=== PATIENT | female | born 1990 | race Caucasian/White ===

== ENCOUNTER 2019-08-03 16:48 | Emergency (ER) | payer SELFPAY ==
[2019-08-03 17:12] VITALS: BP 133/96; PULSE 100; RESP 18; TEMP 36.7; O2SAT 100; BMI 20.3
== END 2019-08-03 18:25 | disposition home or self-care (01) ==
PROVIDERS: Emergency Provider Emergency Medicine
DX: Z53.21 Procedure and treatment not carried out due to patient leaving prior to being seen by health care provider (principal)
CPT/HCPCS: 99281

== ENCOUNTER → 2020-01-08 13:28 | Outpatient (BNVA) | payer OTHER, MEDICAID, SELFPAY | PROVIDERS: Visit Provider Nurse Practitioner Women's Health | DX: O09.899 Supervision of other high risk pregnancies, unspecified trimester (principal); B18.2 Chronic viral hepatitis C; O34.219 Maternal care for unspecified type scar from previous cesarean delivery; Z87.898 Personal history of other specified conditions; O99.331 Smoking (tobacco) complicating pregnancy, first trimester; R00.0 Tachycardia, unspecified; Z3A.12 12 weeks gestation of pregnancy | CPT/HCPCS: 80307; 84315 ==

== ENCOUNTER 2020-03-19 14:05 | Outpatient (CLI) | payer OTHER, MEDICAID, SELFPAY ==
[2020-03-19] VITALS (7 sets, daily range): BP systolic 0–148; BP diastolic 0–85; PULSE 92–110; RESP 18; TEMP 37.1; BMI 21.9
== END 2020-03-19 15:41 | disposition home or self-care (01) ==
LOC: OPOB 14:12 → OBGYN 14:13
PROVIDERS: Visit Provider Obstetrics & Gynecology
DX: O26.899 Other specified pregnancy related conditions, unspecified trimester (principal); Z3A.00 Weeks of gestation of pregnancy not specified; R10.9 Unspecified abdominal pain
CPT/HCPCS: 59025; 99211

== ENCOUNTER → 2020-10-07 11:23 | Outpatient (BNVA) | payer MEDICAID, SELFPAY | PROVIDERS: Visit Provider Nurse Practitioner Family | DX: N30.01 Acute cystitis with hematuria (principal) | CPT/HCPCS: 81003; 87077; 87086; 87184 ==

== ENCOUNTER → 2022-07-07 11:57 | Outpatient (BNVA) | payer MEDICAID, SELFPAY | PROVIDERS: Visit Provider Nurse Practitioner Family | DX: N39.0 Urinary tract infection, site not specified (principal); F11.20 Opioid dependence, uncomplicated; N91.1 Secondary amenorrhea | CPT/HCPCS: 80053; 80307; 84703 ==

== ENCOUNTER 2022-08-02 14:10 | Outpatient (CLI) | payer MEDICAID, SELFPAY ==
--- NOTE | 2022-08-02 14:26 | US_ITS ---
WS: [id number] Bilateral breast ultrasound, 08/02/2022 Clinical Data: BREAST DISCHARGE Comparison: None. Findings: Periareolar breast ultrasound was done in both breasts. There are no cysts or masses. No dilated mamm ford ducts were seen. Only normal breast tissue was imaged. US/US breast BI limited* [id number] Impression: 1. Negative bilateral periareolar breast ultrasound. 2. Recommend clinical follow-up. BIRADS: 1-Negative FOLLOW UP: See Report
== END 2022-08-02 14:11 | disposition home or self-care (01) ==
PROVIDERS: Visit Provider Nurse Practitioner Family
DX: N64.52 Nipple discharge (principal)
CPT/HCPCS: 76642

== ENCOUNTER → 2022-08-10 16:50 | Outpatient (BNVA) | payer MEDICAID, SELFPAY | PROVIDERS: Visit Provider Nurse Practitioner Family | DX: N39.0 Urinary tract infection, site not specified (principal) | CPT/HCPCS: 81003; 87077; 87086; 87184 ==

== ENCOUNTER 2022-09-12 14:10 | Outpatient (CLI) | payer MEDICAID, SELFPAY ==
--- NOTE | 2022-09-12 14:30 | US_ITS ---
WS: [id number] Transabdominal and transvaginal PELVIC ULTRASOUND HISTORY: Back pain. History of . COMPARISON: 12/16/2015 Uterus: 7.7 cm x 4.2 cm x 3.4 cm. Normal size and echogenicity. No fibroids are identified. Endometrium: 1.0 cm. Normal homogeneity and size. Right ovary: 3.2 cm x 2.4 cm x 2.4 cm; no solid or cystic mass. Normal vascularity. Seen on transabdominal imaging only was a hypoechoic area in the RIGHT adnexa which is separate from the ovary. This did not persist on transvaginal imaging. Most likely bowel. Left ovary: 2.2 cm x 2.2 cm x 1.7 cm; no solid or cystic mass. Normal vascularity. No free fluid in the cul-de-sac. US/US pelvic complete* [id number] IMPRESSION: Normal pelvic ultrasound. Normal endometrium.
== END 2022-09-12 14:11 | disposition home or self-care (01) ==
PROVIDERS: PCP Family Medicine; Visit Provider Nurse Practitioner Family
DX: N91.1 Secondary amenorrhea (principal)
CPT/HCPCS: 76856

== ENCOUNTER 2022-11-24 15:57 | Emergency (ER) | payer MEDICAID, SELFPAY ==
[2022-11-24 16:02] VITALS: BP 145/96; PULSE 108; RESP 16; TEMP 36.2; O2SAT 97; BMI 20.3
--- NOTE | 2022-11-24 16:06 | ECG_ITS ---
[facility] Test Date: 2022-11-24 Pat Name: Zabrina Angela Department: Room: Gender: Female Log Scaler: : 1990 Requested By: Misha Herbert Order Number: [id number] Shoemaker MD: Alise Michaels M.D. Measurements Intervals [place] Rate: 104 P: 77 OK: 130 QRS: 66 QRSD: 90 T: 44 QT: 329 QTc: 434 Interpretive Statements SINUS TACHYCARDIA LEFT ATRIAL ENLARGEMENT [-0.15mV P-WAVE IN V1/V2] NONSPECIFIC T-WAVE ABNORMALITY No previous ECG available for comparison Electronically Signed On 11-25-2022 16:34:19 CDT by Alise Michaels M.D. [email or web address]/[id number]
--- NOTE | 2022-11-24 16:06 | XRR_ITS ---
PROCEDURE INFORMATION: Exam: XR Chest Exam date and time: 11/24/2022 4:16 PM Age: 32 years old Clinical indication: Left-sided; Patient HX: Left sided chest pain with history of lung nodules. History of right shoulder surgery. ; Additional info: Cp; Left sided chest pain with history of lung nodules. History of right shoulder surgery. TECHNIQUE: Imaging protocol: Radiologic exam of the chest. Views: 1 view. COMPARISON: CT kidney stone [id number] 09/25/2016 12:39 AM FINDINGS: Lungs: Unremarkable. No consolidation. Pleural spaces: Unremarkable. No pleural effusion. No pneumothorax. Heart/Mediastinum: Unremarkable. No cardiomegaly. Bones/joints: Metallic plate and screws are present in the distal shaft of the right clavicle XR/XR chest 1V portable [id number] IMPRESSION: 1. No acute findings. 2. Orthopedic hardware right clavicle
--- NOTE | 2022-11-24 16:14 | W.ED.CHESTPA ---
Documented by User: LEXI Hernandez 11/25/22 07:07 HPI - Chest Pain General: Chief Complaint: Chest Pain Stated Complaint: chest pain and tightness Time Seen by Provider: 11/24/22 16:04 History of Present Illness: Patient is a 32-year-old female comes to the ED with chest pain. Chest pain started last night while at rest. pain is located left-side of chest and then radiates to her back. She rates the pain an 8 out of 10 and describes it as a tightness type pain in chest. Pain worsens when she takes a deep breath. Last night she took some acid reflux medications and her symptoms did not improve. Denies any cardiac or lung history. She has never had chest pain like this before. Patient says she is currently on azithromycin to treat a sinus infection. Associated symptoms: Reports dyspnea; Deny abdominal pain, fever(s), nausea, palpitations or vomiting Review of Systems Const: Denies: fever(s), chills or fatigue Eyes: Denies: change in vision or eye discomfort ENMT: Denies: throat pain, odynophagia, nasal discharge or nasal congestion Card: Reports: chest pain; Denies: palpitations, edema, swelling of feet/ankles, dyspnea on exertion or orthopnea Resp: Reports: dyspnea; Denies: productive cough or non-productive cough GI: Denies: abdominal pain, nausea, vomiting, diarrhea, constipation or hematochezia : Denies: flank pain, dysuria or hematuria Musc: Denies: neck pain, back pain or extremity swelling Skin/Breast: Denies: rash or new lesions Neuro: Denies: headache(s), numbness in extremities or weakness in extremities PFS ED PFSH: Medical History Anxiety with depression GERD without esophagitis H/O multiple pulmonary nodules (~2019) Hep C w/o coma, chronic (~2014) Tachycardia Surgical History H/O section (05/24/15) H/O clavicle fracture Broken right clavicle - required surgery. Family History Mother Hypertension Stroke Family history of thyroid problem Father Hypertension Hyperlipidemia Grandmother Lung cancer Maternal grandmother Diabetes Paternal grandmother Family history of thyroid problem Maternal grandmother Cancer renal Grandfather Diabetes Paternal grandfather Family/Other Stroke Paternal uncle Denies family history of Colon cancer Ovarian cancer Breast cancer Uterine cancer Social History Smoking and tobacco status: current every day smoker cigarettes Packs smoked per day: 0.5 Years cigarettes smoked: 10 Second hand smoke exposure: Yes Alcohol intake: never Substance/Drug Use: never Lives independently: Yes Household members: significant other and children Marital status: Single Current occupational status: unemployed Pets and animals: Yes Pets & animals: dog(s) Current gender identity: Female Special milton needs: No Agree to transfusion: Yes Additional social history: - Tobacco use: Alcohol use: Drug use: Physical Exam Const: COMMON NORMALS: no acute distress, patient oriented x3 and alert HENMT: COMMON NORMALS: normocephalic HEAD & SCALP: normocephalic MOUTH: Normal oral and palatal mucosa present THROAT: posterior oropharynx normal and uvula midline Neck/C-Spine: COMMON NORMALS: supple GENERAL: Yes normal visual inspection Resp: COMMON NORMALS: normal respiratory effort, No retractions, No use of accessory muscles and clear to auscultation bilaterally AUSCULTATION: clear to auscultation bilaterally Cardio: COMMON NORMALS: regular rate, regular rhythm, S1 normal heart sound present, S2 normal heart sound present, No gallops present (Cardio), No clicks present (Cardio), No murmurs present (Cardio) and Peripheral pulses 2+ throughout RATE: regular rate RHYTHM: regular rhythm HEART SOUNDS: S1 normal heart sound present and S2 normal heart sound present PERIPHERAL PULSES: Peripheral pulses 2+ throughout GI: COMMON NORMALS: Normal to inspection, nondistended, normoactive bowel sounds present, Soft to palpation, non-tender and no masses PALPATION: Yes Soft to palpation : COMMON NORMALS: Yes no CVA tenderness BLADDER/KIDNEY EXAM: Yes no CVA tenderness Back/Pelvis: COMMON NORMALS: no CVA tenderness Extremity: COMMON NORMALS: normal to inspection Neuro: COMMON NORMALS: patient oriented x3 SENSORIUM/ORIENTATION: Yes alert GAIT: Yes Normal gait present Skin: GENERAL SKIN EXAM: dry skin Course Vital Signs: Vital signs: Vital Signs Temperature 97.1 F L 11/24/22 16:02 Pulse Rate 90 11/24/22 18:56 Respiratory Rate 14 11/24/22 16:57 Blood Pressure 145/96 11/24/22 16:02 Pulse Oximetry 100 11/24/22 18:56 Oxygen Delivery Me thod Room Air 11/24/22 16:02 MDM - Chest Pain Lab Data I reviewed the patient's lab results. 11/24/22 16:52 11/24/22 16:52 Laboratory Results WBC 11.7 10^3/uL (4.0-10.0) H 11/24/22 16:52 RBC 4.62 10^6/uL (4.1-5.3) 11/24/22 16:52 Hgb 13.9 g/dL (11.5-15.3) 11/24/22 16:52 Hct 41.4 % (37.0-47.0) 11/24/22 16:52 MCV 89.6 fl (81-99) 11/24/22 16:52 MCH 30.1 pg (28.0-34.0) 11/24/22 16:52 MCHC 33.6 g/dL (30.0-36.0) 11/24/22 16:52 RDW 12.0 % (12.1-15.1) L 11/24/22 16:52 Plt Count 292 10^3/cmm (130-400) 11/24/22 16:52 MPV 9.9 fL (7.4-10.4) 11/24/22 16:52 Neut % (Auto) 70.8 % 11/24/22 16:52 Lymph % (Auto) 21.5 % 11/24/22 16:52 Harvey % (Auto) 4.3 % 11/24/22 16:52 Eos % (Auto) 2.6 % 11/24/22 16:52 Baso % (Auto) 0.5 % 11/24/22 16:52 Neut # (Auto) 8.26 10^3/uL (1.8-7.7) H 11/24/22 16:52 Lymph # (Auto) 2.5 10^3/uL (0.8-4.8) 11/24/22 16:52 Harvey # (Auto) 0.5 10^3/uL (0.2-0.9) 11/24/22 16:52 Eos # (Auto) 0.3 10^3/uL (0.0-0.8) 11/24/22 16:52 Baso # (Auto) 0.1 10^3/uL (0.0-0.1) 11/24/22 16:52 Nucleated RBC % (auto) 0 % 11/24/22 16:52 Nucleated RBCs # 0.0 /100WBC 11/24/22 16:52 D-Dimer 0.31 ug/mIFEU (0-0.59) 11/24/22 16:52 Sodium 139 mmol/L (136-145) 11/24/22 16:52 Potassium 3.8 mmol/L (3.5-5.1) 11/24/22 16:52 Chloride 102 mmol/L (98-107) 11/24/22 16:52 Carbon Dioxide 26 mmol/L (22-29) 11/24/22 16:52 Anion Gap 14.8 (5-19) 11/24/22 16:52 BUN 17 mg/dL (6-20) 11/24/22 16:52 Creatinine 0.7 mg/dL (0.5-0.9) 11/24/22 16:52 GFR Calculation 98.3 mL/min (90-130) 11/24/22 16:52 Glucose 104 mg/dL (65-115) 11/24/22 16:52 Calculated Osmolality 290 mOsm/kg (285-295) 11/24/22 16:52 Calcium 9.2 mg/dL (8.5-10.5) 11/24/22 16:52 Total Bilirubin 0.2 mg/dL (0.15-1.2) 11/24/22 16:52 AST 16 U/L (0-32) 11/24/22 16:52 ALT 10 U/L (0-33) 11/24/22 16:52 Alkaline Phosphatase 98 U/L (35-105) 11/24/22 16:52 Troponin T Baseline 6 ng/L (0-10) 11/24/22 16:52 Troponin T 120 Minute 6.00 ng/L (0-10) 11/24/22 18:39 Delta Troponin T 0 ABS# (0-10) 11/24/22 18:39 Total Protein 7.5 g/dL (6.6-8.7) 11/24/22 16:52 Albumin 4.3 g/dL (3.5-5.2) 11/24/22 16:52 Globulin 3.2 g/dL (1.3-4.6) 11/24/22 16:52 TSH 3.00 uIU/mL (0.27-4.20) 11/24/22 16:52 HCG, Qual Negative (Negative) 11/24/22 16:52 Urine Color Light yellow (Yellow) 11/24/22 17:43 Urine Appearance Hazy (CLEAR) A 11/24/22 17:43 Urine pH 6 (5-7) 11/24/22 17:43 Ur Specific [place] 1.020 (1.005-1.030) 11/24/22 17:43 Urine Protein Neg (Negative) 11/24/22 17:43 Urine Glucose (UA) Norm (Normal) 11/24/22 17:43 Urine Ketones Negative (Negative) 11/24/22 17:43 Urine Blood 2+ (Negative) H 11/24/22 17:43 Urine Nitrate Negative (Negative) 11/24/22 17:43 Urine Bilirubin Neg (Negative) 11/24/22 17:43 Urine Urobilinogen 1 mg/dL (Negative) H 11/24/22 17:43 Ur Leukocyte Esterase 1+ (Negative) H 11/24/22 17:43 Urine RBC 10-15 /hpf (0-2) H 11/24/22 17:43 Urine WBC 15-25 /hpf (0-5) H 11/24/22 17:43 Ur Squamous Epith Cells 55-80 /hpf (0-5) H 11/24/22 17:43 Amorphous Sediment Not Reportable 11/24/22 17:43 Urine Bacteria Trace /hpf (NONE) 11/24/22 17:43 Urine Mucus 4+ /hpf 11/24/22 17:43 Urine Opiates Screen Positive ng/mL (Negative) H 11/24/22 17:43 Ur Barbiturates Screen Negative ng/mL (Negative) 11/24/22 17:43 Ur Phencyclidine Scrn Negative ng/mL (Negative) 11/24/22 17:43 Ur Amphetamines Screen Positive ng/mL (Negative) H 11/24/22 17:43 U Benzodiazepines Scrn Positive ng/mL (Negative) H 11/24/22 17:43 Urine Cocaine Screen Negative ng/mL (Negative) 11/24/22 17:43 U Marijuana (THC) Screen Negative ng/mL (Negative) 11/24/22 17:43 EKG Data EKG 1: EKG interpretation date: 11/24/22 Interpretation: Sinus tachycardia, 104 bpm, no ST segment elevation or depression seen. Discharge Plan Discharge Patient Disposition: Home Clinical Impression: Left-sided chest pain, Chest pain, non-cardiac Condition: Stable Prescriptions: New pantoprazole 40 mg tablet,delayed release (DR/EC) 40 mg PO DAILY 28 Days Qty: 30 0RF cyclobenzaprine 10 mg tablet 10 mg PO TID Qty: 14 0RF No Action azithromycin 250 mg tablet See Rx Instructions PO .COMPLEX Qty: 6 0RF Rx Instructions: For 250 mg dose pack: take 500 mg today (day 1), then 250 mg for 4 days (days 2-5) PO aspirin 325 mg Tablet 325 mg PO .ONE TIME DOSE Discharge Orders: Discharge ED (Routine); Ordered 11/24/22 Ordered By: Naz Meyers Referrals: Ana Luisa Gee MD [Primary Care Provider] - Discharge Diet: Usual diet Discharge Activity: Increase activity as tolerated Patient Instructions: Chest Pain - Noncardiac, Chest Pain - Chest Wall, Angina (ED), GERD (Gastroesophageal Reflux Disease) (ED), Esophageal Spasm (ED) Activity Restrictions/Additional Instructions: Cardiac evaluation today revealed no acute concerns regarding your heart. You showed no signs of any acute bacterial infection, anemia, electrolyte imbalance, or acute dehydration. You were evaluated for potential blood clot in your chest which was also normal and, showed no signs of any abnormal thyroid function. As we discussed, there are some causes of chest pain that are not able to be evaluated with lab work or imaging-such as an esophageal spasm. We will try treatment for reflux and I am going to give you some muscle relaxer should your pain be caused by an esophageal spasm to see if it alleviates your discomfort. I do recommend following up with your primary care doctor at the beginning of next week for recheck or, being seen and reevaluated again here in the emergency department if you develop recurrence of chest pain, shortness of breath, passing out, vomiting, or difficulty breathing. Sign Out Sign Out Data: Patient Sign Out occurred on 11/24/22 at 17:05. Patient's care was discussed, and care was transferred from to LEXI Phillips. Coding Level of Care Code ED Household Appliance Mechanic for Chg Fwd Documented by User: LEXI Phillips 11/24/22 18:52 HPI - Chest Pain General: Chief Complaint: Chest Pain Stated Complaint: chest pain and tightness Time Seen by Provider: 11/24/22 16:04 PFSH ED PFSH: Medical History Anxiety with depression GERD without esophagitis H/O multiple pulmonary nodules (~2019) Hep C w/o coma, chronic (~2014) Tachycardia Surgical History H/O section (05/24/15) H/O clavicle fracture Broken right clavicle - required surgery. Family History Mother Hypertension Stroke Family history of thyroid problem Father Hypertension Hyperlipidemia Grandmother Lung cancer Maternal grandmother Diabetes Paternal grandmother Family history of thyroid problem Maternal grandmother Cancer renal Grandfather Diabetes Paternal grandfather Family/Other Stroke Paternal uncle Denies family history of Colon cancer Ovarian cancer Breast cancer Uterine cancer Social History Smoking and tobacco status: current every day smoker cigarettes Packs smoked per day: 0.5 Years cigarettes smoked: 10 Second hand smoke exposure: Yes Alcohol intake: never Substance/Drug Use: never Lives independently: Yes Household members: significant other and children Marital status: Single Current occupational status: unemployed Pets and animals: Yes Pets & animals: dog(s) Current gender identity: Female Special milton needs: No Agree to transfusion: Yes Additional social history: - Tobacco use: Alcohol use: Drug use: Course Vital Signs: Vital signs: Vital Signs Temperature 97.1 F L 11/24/22 16:02 Pulse Rate 90 11/24/22 18:56 Respiratory Rate 14 11/24/22 16:57 Blood Pressure 145/96 11/24/22 16:02 Pulse Oximetry 100 11/24/22 18:56 Oxygen Delivery Me thod Room Air 11/24/22 16:02 MDM - Chest Pain Medical Decision Making Naz Meyers PA-C: I received transfer of care for this patient at 1700 from [facility]. After hearing the patient's presenting complaints, we did add a TSH to her evaluation. Also, I did some investigating into the patient's chart and, as of 2019, had a history of untreated hepatitis and a history of drug use. Later chart indicates she was going to a Suboxone clinic. Patient's chart indicates a previously documented history of tachycardia without associated diagnostic cause. I added a urinalysis with a urine drug screen. Patient had no elevated white blood cell count no signs of anemia. She had no electrolyte abnormality and thyroid was normal. Chest x-ray indicated no signs of any active hernia, EKG showed a sinus tachycardia but no elevated troponins. Patient's D-dimer was negative. Patient's urinalysis revealed positive findings of amphetamines, benzodiazepines, and opioids. I did discuss all these negative and positive findings with the patient. Explained to her that there are other reasons of chest pain which we do not have a blood test for-i.e. reflux or esophageal spasm. Explained that both of these can cause pain and discomfort in the region she described. We will try her on a PPI and, muscle relaxer to see if her pain is improved however, she was given strict return precautions for any return or worsening of chest pains including respiratory distress or passing out. Recommended follow-up appoint with her primary care next week for recheck. Differential Diagnosis Likely acute massive pulmonary embolism (Abnormal thyroid, hiatal hernia, anemia, illegal substance), acute respiratory failure and acute myocardial infarction Lab Data 11/24/22 16:52 11/24/22 16:52 Laboratory Results WBC 11.7 10^3/uL (4.0-10.0) H 11/24/22 16:52 RBC 4.62 10^6/uL (4.1-5.3) 11/24/22 16:52 Hgb 13.9 g/dL (11.5-15.3) 11/24/22 16:52 Hct 41.4 % (37.0-47.0) 11/24/22 16:52 MCV 89.6 fl (81-99) 11/24/22 16:52 MCH 30.1 pg (28.0-34.0) 11/24/22 16:52 MCHC 33.6 g/dL (30.0-36.0) 11/24/22 16:52 RDW 12.0 % (12.1-15.1) L 11/24/22 16:52 Plt Count 292 10^3/cmm (130-400) 11/24/22 16:52 MPV 9.9 fL (7.4-10.4) 11/24/22 16:52 Neut % (Auto) 70.8 % 11/24/22 16:52 Lymph % (Auto) 21.5 % 11/24/22 16:52 Harvey % (Auto) 4.3 % 11/24/22 16:52 Eos % (Auto) 2.6 % 11/24/22 16:52 Baso % (Auto) 0.5 % 11/24/22 16:52 Neut # (Auto) 8.26 10^3/uL (1.8-7.7) H 11/24/22 16:52 Lymph # (Auto) 2.5 10^3/uL (0.8-4.8) 11/24/22 16:52 Harvey # (Auto) 0.5 10^3/uL (0.2-0.9) 11/24/22 16:52 Eos # (Auto) 0.3 10^3/uL (0.0-0.8) 11/24/22 16:52 Baso # (Auto) 0.1 10^3/uL (0.0-0.1) 11/24/22 16:52 Nucleated RBC % (auto) 0 % 11/24/22 16:52 Nucleated RBCs # 0.0 /100WBC 11/24/22 16:52 D-Dimer 0.31 ug/mIFEU (0-0.59) 11/24/22 16:52 Sodium 139 mmol/L (136-145) 11/24/22 16:52 Potassium 3.8 mmol/L (3.5-5.1) 11/24/22 16:52 Chloride 102 mmol/L (98-107) 11/24/22 16:52 Carbon Dioxide 26 mmol/L (22-29) 11/24/22 16:52 Anion Gap 14.8 (5-19) 11/24/22 16:52 BUN 17 mg/dL (6-20) 11/24/22 16:52 Creatinine 0.7 mg/dL (0.5-0.9) 11/24/22 16:52 GFR Calculation 98.3 mL/min (90-130) 11/24/22 16:52 Glucose 104 mg/dL (65-115) 11/24/22 16:52 Calculated Osmolality 290 mOsm/kg (285-295) 11/24/22 16:52 Calcium 9.2 mg/dL (8.5-10.5) 11/24/22 16:52 Total Bilirubin 0.2 mg/dL (0.15-1.2) 11/24/22 16:52 AST 16 U/L (0-32) 11/24/22 16:52 ALT 10 U/L (0-33) 11/24/22 16:52 Alkaline Phosphatase 98 U/L (35-105) 11/24/22 16:52 Troponin T Baseline 6 ng/L (0-10) 11/24/22 16:52 Troponin T 120 Minute 6.00 ng/L (0-10) 11/24/22 18:39 Delta Troponin T 0 ABS# (0-10) 11/24/22 18:39 Total Protein 7.5 g/dL (6.6-8.7) 11/24/22 16:52 Albumin 4.3 g/dL (3.5-5.2) 11/24/22 16:52 Globulin 3.2 g/dL (1.3-4.6) 11/24/22 16:52 TSH 3.00 uIU/mL (0.27-4.20) 11/24/22 16:52 HCG, Qual Negative (Negative) 11/24/22 16:52 Urine Color Light yellow (Yellow) 11/24/22 17:43 Urine Appearance Hazy (CLEAR) A 11/24/22 17:43 Urine pH 6 (5-7) 11/24/22 17:43 Ur Specific [place] 1.020 (1.005-1.030) 11/24/22 17:43 Urine Protein Neg (Negative) 11/24/22 17:43 Urine Glucose (UA) Norm (Normal) 11/24/22 17:43 Urine Ketones Negative (Negative) 11/24/22 17:43 Urine Blood 2+ (Negative) H 11/24/22 17:43 Urine Nitrate Negative (Negative) 11/24/22 17:43 Urine Bilirubin Neg (Negative) 11/24/22 17:43 Urine Urobilinogen 1 mg/dL (Negative) H 11/24/22 17:43 Ur Leukocyte Esterase 1+ (Negative) H 11/24/22 17:43 Urine RBC 10-15 /hpf (0-2) H 11/24/22 17:43 Urine WBC 15-25 /hpf (0-5) H 11/24/22 17:43 Ur Squamous Epith Cells 55-80 /hpf (0-5) H 11/24/22 17:43 Amorphous Sediment Not Reportable 11/24/22 17:43 Urine Bacteria Trace /hpf (NONE) 11/24/22 17:43 Urine Mucus 4+ /hpf 11/24/22 17:43 Urine Opiates Screen Positive ng/mL (Negative) H 11/24/22 17:43 Ur Barbiturates Screen Negative ng/mL (Negative) 11/24/22 17:43 Ur Phencyclidine Scrn Negative ng/mL (Negative) 11/24/22 17:43 Ur Amphetamines Screen Positive ng/mL (Negative) H 11/24/22 17:43 U Benzodiazepines Scrn Positive ng/mL (Negative) H 11/24/22 17:43 Urine Cocaine Screen Negative ng/mL (Negative) 11/24/22 17:43 U Marijuana (THC) Screen Negative ng/mL (Negative) 11/24/22 17:43 Discharge Plan Discharge Patient Disposition: Home Clinical Impression: Left-sided chest pain, Chest pain, non-cardiac Condition: Stable Prescriptions: New pantoprazole 40 mg tablet,delayed release (DR/EC) 40 mg PO DAILY 28 Days Qty: 30 0RF cyclobenzaprine 10 mg tablet 10 mg PO TID Qty: 14 0RF No Action azithromycin 250 mg tablet See Rx Instructions PO .COMPLEX Qty: 6 0RF Rx Instructions: For 250 mg dose pack: take 500 mg today (day 1), then 250 mg for 4 days (days 2-5) PO aspirin 325 mg Tablet 325 mg PO .ONE TIME DOSE Discharge Orders: Discharge ED (Routine); Ordered 11/24/22 Ordered By: Naz Meyers Referrals: Ana Luisa Gee MD [Primary Care Provider] - Discharge Diet: Usual diet Discharge Activity: Increase activity as tolerated Patient Instructions: Chest Pain - Noncardiac, Chest Pain - Chest Wall, Angina (ED), GERD (Gastroesophageal Reflux Disease) (ED), Esophageal Spasm (ED) Activity Restrictions/Additional Instructions: Cardiac evaluation today revealed no acute concerns regarding your heart. You showed no signs of any acute bacterial infection, anemia, electrolyte imbalance, or acute dehydration. You were evaluated for potential blood clot in your chest which was also normal and, showed no signs of any abnormal thyroid function. As we discussed, there are some causes of chest pain that are not able to be evaluated with lab work or imaging-such as an esophageal spasm. We will try treatment for reflux and I am going to give you some muscle relaxer should your pain be caused by an esophageal spasm to see if it alleviates your discomfort. I do recommend following up with your primary care doctor at the beginning of next week for recheck or, being seen and reevaluated again here in the emergency department if you develop recurrence of chest pain, shortness of breath, passing out, vomiting, or difficulty breathing. Sign Out Sign Out Data: Patient Sign Out occurred on 11/24/22 at 17:05. Patient's care was discussed, and care was transferred from to LEXI Phillips. Coding Level of Care Code ED Household Appliance Mechanic for Sabrina Beltran
[2022-11-24] MEDS: aspirin 81 mg Chew Tablet 324 MG PO (16:54)
[2022-11-24] MEDS: ondansetron 2 mg/ML SDV 2 mL 4 MG IVP (16:55)
[2022-11-24 16:57] VITALS: RESP 14; O2SAT 100
[2022-11-24] MEDS: morphine 4 mg/mL SDV 1 mL IVP (16:57)
[2022-11-24 17:11] LABS: Basophils # 0.1 10^3/uL (0.0-0.1); Basophils % 0.5 %; Eosinophils # 0.3 10^3/uL (0.0-0.8); Eosinophils % 2.6 %; Hematocrit 41.4 % (37.0-47.0); Hemoglobin 13.9 g/dL (11.5-15.3); Lymphocytes # 2.5 10^3/uL (0.8-4.8); Lymphocytes % 21.5 %; Mean Corpuscular HGB Conc 33.6 g/dL (30.0-36.0); Mean Corpuscular Hemoglobin 30.1 pg (28.0-34.0); Mean Corpuscular Volume 89.6 fl (81-99); Mean Platelet Volume 9.9 fL (7.4-10.4); Monocytes # 0.5 10^3/uL (0.2-0.9); Monocytes % 4.3 %; Neutrophils # 8.26 10^3/uL (1.8-7.7); Neutrophils % 70.8 %; Nucleated Red Blood Cells % 0 %; Platelet Count 292 10^3/cmm (130-400); Red Blood Count 4.62 10^6/uL (4.1-5.3); White Blood Count 11.7 10^3/uL (4.0-10.0)
[2022-11-24 17:20] LABS: HCG, Serum Qual Negative (Negative)
[2022-11-24 17:33] LABS: Troponin(5th) Baseline 6 ng/L (0-10)
[2022-11-24 17:42] LABS: Alanine Aminotransferase 10 U/L (0-33); Albumin Level 4.3 g/dL (3.5-5.2); Alkaline Phosphatase 98 U/L (35-105); Anion Gap 14.8 (5-19); Aspartate Amino Transferase 16 U/L (0-32); Blood Urea Nitrogen 17 mg/dL (6-20); Calcium 9.2 mg/dL (8.5-10.5); Carbon Dioxide 26 mmol/L (22-29); Chloride 102 mmol/L (98-107); Creatinine Clr Calc Pharmacy 112.3239; Globulin 3.2 g/dL (1.3-4.6); Glomerular Filtration Rate 98.3 mL/min (90-130); Glucose 104 mg/dL (65-115); Osmolality Calculated 290 mOsm/kg (285-295); Potassium 3.8 mmol/L (3.5-5.1); Sodium 139 mmol/L (136-145); Total Bilirubin 0.2 mg/dL (0.15-1.2); Total Protein 7.5 g/dL (6.6-8.7)
[2022-11-24 17:44] LABS: D Dimer 0.31 ug/mIFEU (0-0.59)
[2022-11-24 18:05] VITALS: PULSE 94; O2SAT 100
--- NOTE | 2022-11-24 18:14 | ECG_ITS ---
[facility] Test Date: 2022-11-24 Pat Name: Zabrina Angela Department: Room: Gender: Female Barrel Reamer: : 1990 Requested By: Misha Herbert Order Number: [id number] Shoemaker MD: Alise Michaels M.D. Measurements Intervals [place] Rate: 88 P: 79 SD: 135 QRS: 68 QRSD: 88 T: 60 QT: 366 QTc: 444 Interpretive Statements SINUS RHYTHM POSSIBLE LEFT ATRIAL ENLARGEMENT [-0.1mV P-WAVE IN V1/V2] Compared to ECG 11/24/2022 16:20:07 Sinus tachycardia no longer present T-wave abnormality no longer present Electronically Signed On 11-25-2022 16:55:45 CDT by Alise Michaels M.D. [id number]
[2022-11-24 18:23] LABS: Amphetamines Screen Urine Positive (Negative); Barbiturates Screen Urine Negative (Negative); Benzodiazepines Screen Urine Positive (Negative); Cocaine Screen Urine Negative (Negative); Opiate Screen Urine Positive (Negative); PCP Screen Urine Negative (Negative); THC Screen Urine Negative (Negative)
[2022-11-24 18:27] LABS: Bilirubin Urine Neg (Negative); Blood Urine 2+ (Negative); Glucose Urine UA Norm (Normal); Ketones Urine Negative (Negative); Nitrate Urine Negative (Negative); Protein Urine Neg (Negative); Urine Appearance Hazy (CLEAR); Urine Color Light yellow (Yellow); pH Urine 6 (5-7)
[2022-11-24 18:28] LABS: Add Urine Culture? No; Add Urine Microscopic? YES; Bacteria Urine TRACE /hpf; Leukocyte Esterase Urine 1+ (Negative); Mucus Urine 4+ /hpf; Squamous Epithelial Cell Urine 55-80 /hpf (0-5); Urobilinogen Urine 1 mg/dL (Negative); WBC Urine 15-25 /hpf (0-5)
[2022-11-24 18:56] VITALS: PULSE 90; O2SAT 100
[2022-11-24 19:25] LABS: Troponin 5 2HR Delta 0 ABS# (0-10)
== END 2022-11-24 18:57 | disposition home or self-care (01) ==
PROVIDERS: Physician Assistant; Emergency Provider Physician Assistant; PCP Family Medicine
DX: R07.89 Other chest pain (principal); R00.0 Tachycardia, unspecified; F19.90 Other psychoactive substance use, unspecified, uncomplicated
CPT/HCPCS: 71045; 80053; 80306; 81001; 84443; 84484; 84703; 85025; 85378; 93005; 96374; 96375; 99285; J2270; J2405